=== PATIENT | male | born 1965 | race American Indian/Alaskan Native ===

== ENCOUNTER 2021-07-07 05:05 | Emergency (ER) | payer SELFPAY ==
[2021-07-07] MEDS ORDERED: IBUPROFEN 800 MG TAB PO STA (07:45)
[2021-07-07] MEDS ORDERED: ACETAMINOPHEN 500 MG TAB PO STA (07:45)
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
--- NOTE | 2021-07-07 08:30 | XRay Report ---
LEFT FOOT 3 VIEW(S) INDICATION / CLINICAL INFORMATION: toes pain, worse in great toes w/ nonhealing wound COMPARISON: None available. FINDINGS: BONES / JOINT(S): No acute fracture or subluxation. No significant arthritis. No osseous destruction or erosion. SOFT TISSUES: Soft tissue ulcer of the dorsal aspect of the great toe. No soft tissue gas. Mild soft tissue swelling of the toes, especially the great toe. ADDITIONAL FINDINGS: None. IMPRESSION: 1. Great toe soft tissue ulcer but no definitive radiographic evidence for osteomyelitis. Signer Name: Yudith Mistry MD Signed: 07/07/2021 8:26 AM Workstation Name: [id number]
[2021-07-07 08:54] LABS: Basophils % (Auto) 0.3 % (0.0-1.8); Eosinophils # (Auto) 0.1 K/mm3 (0.0-0.4); Eosinophils % (Auto) 1.8 % (0.0-4.3); Hematocrit 44.2 % (35.5-45.6); Hemoglobin 14.4 gm/dl (11.8-15.2); Lymphocytes # (Auto) 1.3 K/mm3 (1.2-5.4); Lymphocytes % (Auto) 19.6 % (13.4-35.0); Mean Corpuscular HGB Conc 33 % (32-34); Mean Corpuscular Volume 103 fl (84-94); Monocytes # (Auto) 0.5 K/mm3 (0.0-0.8); Platelet Count 198 K/mm3 (140-440); Red Cell Distribution Width 14.3 % (13.2-15.2)
[2021-07-07 09:14] LABS: BUN/Creatinine Ratio 13; Blood Urea Nitrogen 13 mg/dL (9-20); Calcium 9.6 mg/dL (8.4-10.2); Hemolysis Index 10
[2021-07-07 10:02] VITALS: BP 136/91
== END 2021-07-07 10:01 | disposition home or self-care (01) ==
LOC: ED 05:05
DX: S91.109A Unspecified open wound of unspecified toe(s) without damage to nail, initial encounter (principal); M79.674 Pain in right toe(s); M79.675 Pain in left toe(s); Z88.0 Allergy status to penicillin; X58.XXXA Exposure to other specified factors, initial encounter; F17.200 Nicotine dependence, unspecified, uncomplicated; Y93.89 Activity, other specified; Y92.89 Other specified places as the place of occurrence of the external cause; Y99.8 Other external cause status
CPT/HCPCS: 36415; 80048; 85025; 99284